=== PATIENT | female | born 1970 | race Caucasian/White ===

== ENCOUNTER 2017-08-09 11:42 | Day surgery (SDC) | payer OTHER ==
[~2017-08-09] VITALS: Ht 165.1 cm; Wt 87.5 kg
[2017-08-09] VITALS (10 sets, daily range): BP systolic 106–137; BP diastolic 67–85; PULSE 65–112; RESP 15–24; Ht 165.1 cm; Wt 87.5 kg
[~2017-08-09 11:42] MED LIST: CEFAZOLIN 2 GM/50 ML (PMX) 50 ML IVPB SCH; EPHEDrine SULFATE 50 MG/5 ML SYG ONE; SOD CHLORIDE 0.9% 1,000 ML IV SCH
[2017-08-09] MEDS ORDERED: LORA1TAB PO (12:20)
[2017-08-09] MEDS ORDERED: ALPR1TAB7 PO (12:22)
[2017-08-09] MEDS ORDERED: FENTAnyl 50 MCG/ML VIAL IV PRN (13:00)
[2017-08-09] MEDS ORDERED: ONDANSETRON 4 MG INJ IV PRN (13:00)
[2017-08-09] MEDS ORDERED: PROCHLORPERAZINE 10 MG INJ IV PRN (13:00)
[2017-08-09] MEDS ORDERED: MEPERIDINE 25 MG INJ IV PRN (13:00)
[2017-08-09] MEDS ORDERED: OXYCODONE/ACETAMINOPHEN (5/325) TAB PO PRN (13:00)
[2017-08-09] MEDS ORDERED: HYDROmorphONE (0.2 MG/ML) 10ML SYG IV PRN ×3 (13:00)
[2017-08-09] MEDS ORDERED: DIPHENHYDRAMINE 50 MG INJ IV PRN (13:00)
[2017-08-09] MEDS ORDERED: BUPIVACAINE 0.25% (MPF) 30 ML INJ ONE (14:22)
[2017-08-09] MEDS ORDERED: FENTAnyl 50 MCG/ML VIAL ONE (14:31)
[2017-08-09] MEDS ORDERED: MIDAZOLAM 1 MG/ML 2 ML INJ ONE (14:31)
[2017-08-09] MEDS ORDERED: CEFAZOLIN 1 GM INJ ONE (14:47)
[2017-08-09] MEDS ORDERED: FAMOTIDINE 20 MG INJ ONE (14:47)
[2017-08-09] MEDS ORDERED: PROPOFOL 20 ML ONE (14:47)
[2017-08-09] MEDS ORDERED: DEXAMETHASONE 4 MG/ML 1 ML INJ ONE (14:47)
[2017-08-09] MEDS ORDERED: ONDANSETRON 4 MG INJ ONE (14:47)
[2017-08-09] MEDS ORDERED: LIDOCAINE 2% (SDV) 5 ML INJ ONE (14:47)
[2017-08-09] MEDS ORDERED: PHENYLephrine (100 MCG/ML) 5ML SYG ONE (15:03)
--- NOTE | 2017-08-09 15:09 | OPR ---
Date/Time of Note Date/Time of Note DATE: 08/09/17 TIME: 15:07 Operative Report Procedure Date: Aug 09, 2017 Preoperative Diagnosis back mass Postoperative Diagnosis same Operation/Procedure Performed 1. excision of left back mass 10 cm mass 8 cm incision 2. localized adjacent tissue transfer with the use of skin flaps 16 sq cm defect 3. therapeutic injection of subcutaneous local anesthesia Surgeon see signature line Director Of [employer] none Anesthesia Type: general Estimated Blood Loss: 0 - 10 ml's Transfusion none Specimen back mass Grafts/Implants none Complications none Pt Condition Post Procedure: stable Indications This is a 46-year-old female with a left upper back mass. She requests surgical excision. Risks alternatives benefits and percent were discussed the patient. Patient expressed understanding and consents to the operation. Procedure Description Patient is taken to the OR and prepped and draped in the usual sterile fashion. Surgical timeout was performed. IV antibiotics were given. Transverse incision is made with a 10 blade over the left upper back mass. Dissection cautery was carried onto the mass and the mass is excised en bloc. There is good hemostasis. Due to tissue defect localized adjacent tissue transfer with the use of skin flaps was performed. Multilayer closure with interrupted 3-0 Vicryl and skin abdoulaye. Therapeutic subcutaneous local anesthesia was injected throughout the incision site. Dry dressings were applied. Zara KENYON Aug 09, 2017 15:09
[2017-08-09] MEDS ORDERED: HYDROCODONE/APAP (5/325) TAB PO ONE (15:30)
== END 2017-08-09 17:10 | disposition home or self-care (01) ==
LOC: SDS 11:42
PROVIDERS: ATTEND Surgery
DX: D17.1 Benign lipomatous neoplasm of skin and subcutaneous tissue of trunk (principal); Z87.891 Personal history of nicotine dependence
CPT/HCPCS: 14001; 21931; 84703; 88307; J0690; J1100; J2250; J2370; J2405; J3010; Z7512; Z7610